=== PATIENT | male | born 1990 | race Caucasian/White ===

== ENCOUNTER 2021-08-23 02:31 | Emergency (ER) | payer SELFPAY ==
[2021-08-23 03:34] LABS: Bilirubin Negative (Negative); Blood, Urine Negative (Negative); Clarity Clear (Clear); Glucose, Urine (Dipstick) Normal (Negative); Ketone, Urine Negative (Negative); Leukocyte Negative Leu/uL (Negative); Nitrite Negative (Negative); Protein, Urine (Dipstick) Negative (Neg-Trace); Specific Gravity, Urine 1.003 (1.002-1.036); Urobilinogen Normal mg/dL (Less than 2)
[2021-08-23 03:48] LABS: #Basophils 0.1 thou/uL (0.0-0.2); #Eosinphils 0.4 thou/uL (0.0-0.7); #Lymphocytes 3.1 thou/uL (1.20-3.40); #Monocytes 0.6 thou/uL (0.11-0.59); #Neutrophils 4.1 thou/uL (1.40-6.50); %Basophils 1.1 % (0.0-1.0); %Eosinophils 4.6 % (0.0-10.0); %Lymphocytes 37.2 % (21.0-51.0); %Monocytes 7.6 % (0.0-10.0); %Neutrophils 49.5 % (42.0-75.0); Hemoglobin 13.6 g/dL (14.0-18.0); Mean Corpuscular HGB CONC 34.6 g/dL (32.0-36.0); Mean Corpuscular Hemoglobin 30.8 pg (27.0-31.0); Mean Corpuscular Volume 89.1 fL (78.0-98.0); Mean Platelet Volume 7.9 fL (7.4-10.4); Platelet Count 230 thou/uL (130-400); RBC Distribution Width 11.8 % (11.5-14.5); Red Blood Cell (RBC) Count 4.41 mill/uL (4.70-6.10); White Blood Cell (WBC) Count 8.3 thou/uL (4.8-10.8)
[2021-08-23 03:52] LABS: Albumin 4.3 g/dL (3.5-5.0)
[2021-08-23 03:53] LABS: Chloride 107 mmol/L (98-107); Potassium 3.8 mmol/L (3.5-5.1); Sodium 141 mmol/L (136-145)
[2021-08-23 03:54] LABS: Calcium 9.7 mg/dL (7.8-10.44); Glucose 103 mg/dL (70-105)
[2021-08-23 03:55] LABS: Protein, Total 7.3 g/dL (6.0-8.3)
[2021-08-23 03:56] LABS: Anion Gap 12 mmol/L (10-20); Bilirubin, Total 0.3 mg/dL (0.2-1.2); Carbon Dioxide 26 mmol/L (22-29)
[2021-08-23 03:58] LABS: Alkaline Phosphatase 113 U/L (40-110); Calc. Creatinine Clearance 0 mL/min (70-130)
[2021-08-23 03:59] LABS: BUN (Urea Nitrogen) 8 mg/dL (8.9-20.6)
[2021-08-23 04:00] LABS: ALT (SGPT) 17 U/L (8-55); AST (SGOT) 22 U/L (5-34)
[2021-08-23 04:01] LABS: Lipase 23 U/L (8-78)
== END 2021-08-23 06:25 | disposition home or self-care (01) ==
LOC: ERS 02:31
DX: K21.9 Gastro-esophageal reflux disease without esophagitis (principal); R10.12 Left upper quadrant pain; F17.210 Nicotine dependence, cigarettes, uncomplicated
CPT/HCPCS: 36415; 80053; 81003; 83690; 85025; 93005

== ENCOUNTER 2022-07-21 10:40 | Emergency (ER) | payer SELFPAY ==
[2022-07-21] MEDS ORDERED: Ketorolac Tromethamine 30 MG/ML VIAL ONE (12:18)
== END 2022-07-21 12:25 | disposition home or self-care (01) ==
LOC: ERS 10:40
DX: M25.551 Pain in right hip (principal); R11.0 Nausea; Z87.891 Personal history of nicotine dependence
CPT/HCPCS: 96372; J1885

== ENCOUNTER 2023-08-02 20:41 | Emergency (ER) | payer SELFPAY ==
[2023-08-02] MEDS ORDERED: Metoclopramide HCl 10 MG/2 ML VIAL ONE (23:21)
[2023-08-02] MEDS ORDERED: diphenhydrAMINE 50 MG/ML VIAL ONE (23:21)
[2023-08-02] MEDS ORDERED: Ketorolac Tromethamine 30 MG/ML VIAL ONE (23:21)
[2023-08-02 23:25] LABS: #Basophils 0.1 thou/uL (0.0-0.2); #Eosinphils 0.4 thou/uL (0.0-0.7); #Monocytes 0.6 thou/uL (0.11-0.59); #Neutrophils 5.4 thou/uL (1.40-6.50); %Basophils 0.8 % (0.0-1.0); %Eosinophils 3.7 % (0.0-10.0); %Lymphocytes 34.6 % (21.0-51.0); %Monocytes 6.2 % (0.0-10.0); %Neutrophils 54.3 % (42.0-75.0); Hematocrit 41.9 % (42.0-52.0); Hemoglobin 14.4 g/dL (14.0-18.0); Mean Corpuscular HGB CONC 34.4 g/dL (32.0-36.0); Mean Corpuscular Hemoglobin 29.5 pg (27.0-31.0); Mean Corpuscular Volume 85.9 fl (78.0-98.0); Mean Platelet Volume 10.3 fL (7.4-10.4); Platelet Count 277 10x3/uL (130-400); RBC Distribution Width 12.2 % (11.5-14.5); Red Blood Cell (RBC) Count 4.88 mill/uL (4.70-6.10); White Blood Cell (WBC) Count 9.9 10x3/uL (4.8-10.8)
[2023-08-02 23:47] LABS: ALT (SGPT) 22 U/L (8-55); AST (SGOT) 20 U/L (5-34); Albumin 4.9 g/dL (3.5-5.0); Alkaline Phosphatase 101 U/L (40-110); Anion Gap 14 mmol/L (10-20); BUN (Urea Nitrogen) 16 mg/dL (8.9-20.6); Bilirubin, Total 0.4 mg/dL (0.2-1.2); Calc. Creatinine Clearance 0 mL/min (70-130); Calcium 10.5 mg/dL (7.8-10.44); Carbon Dioxide 25 mmol/L (22-29); Chloride 102 mmol/L (98-107); Estimated GFR 81; Globulin 3.7 g/dL (2.4-3.5); Glucose 93 mg/dL (70-105); Protein, Total 8.6 g/dL (6.0-8.3); Sodium 137 mmol/L (136-145)
== END 2023-08-03 01:06 | disposition home or self-care (01) ==
LOC: ERS 20:41
DX: S33.5XXA Sprain of ligaments of lumbar spine, initial encounter (principal); M54.81 Occipital neuralgia; W18.30XA Fall on same level, unspecified, initial encounter
CPT/HCPCS: 36415; 70450; 72072; 72125; 80053; 85025; 96365; 96375; J1200; J1885; J2765